=== PATIENT | female | born 1950 ===

== ENCOUNTER 2021-04-09 05:44 | Day surgery (SDC) | payer OTHER ==
[~2021-04-09 05:44] MED LIST: ADULT LOW DOSE81 M1 PO; ADVAIR HFA 230/12 GM IH; B12 ACTIVE1000 MCG PO; CALCIUM500 M2 PO; CARAFATE1 GM PO; CELEXA20 MG PO; CENTRUM SILVER1 EAC2 PO; CLARITIN10 M2 PO; HYDROCHLOROTHIA25 MG PO; LEVOTHYROXINE25 MCG PO; LEVSIN0.125 MG PO; MULTIPLE VITAM1 EAC2 PO; PROAIR HFA8.5 GM IH; QUESTRAN PACKET4 GM PO; VITAMIN C100 MG PO; ZESTRIL5 MG PO
[2021-04-09] MEDS ORDERED: PERCOCET 5-3251 EACH PO (14:20)
== END 2021-04-09 16:30 | disposition home or self-care (01) ==
LOC: CIR.AMB 05:44
PROVIDERS: ATTEND Surgery
DX: R15.9 Full incontinence of feces (principal); Z20.822 Contact with and (suspected) exposure to COVID-19
CPT/HCPCS: 64581; 95972; C1778

== ENCOUNTER 2021-04-23 06:00 | Day surgery (SDC) | payer OTHER ==
[~2021-04-23 06:00] MED LIST changes: +PERCOCET 5-3251 EACH PO
== END 2021-04-23 13:45 | disposition home or self-care (01) ==
LOC: CIR.AMB 06:00
PROVIDERS: ATTEND Surgery
DX: R15.9 Full incontinence of feces (principal); Z20.822 Contact with and (suspected) exposure to COVID-19
CPT/HCPCS: 64590; 95971; L8679

== ENCOUNTER 2025-01-31 08:44 | Day surgery (SDC) | payer OTHER ==
[2025-01-29 12:19] LABS: HEMOGLOBIN 12.8 g/dL (12.0-15.00); MEAN CELL VOLUME 87.3 fL (80.00-100.00); MEAN CORPUSCULAR HEMOGLOBIN 29.4 pg (27.00-32.0); MEAN CORPUSCULAR HGB CONC 33.7 g/dl (32.0-36.0); PLATELET COUNT 149 K/uL (150-450); RED BLOOD COUNT 4.35 M/uL (4.00-6.00); RED CELL DISTRIBUTION WIDTH 14.7 % (11.5-14.5)
[2025-01-29 12:39] LABS: PARTIAL THROMBOPLASTIN TIME 26.4 SECONDS (22.0-34.0); PROTHROMBIN TIME 10.9 SECONDS (9.0-11.5)
[2025-01-29 13:01] VITALS: BP 115/76
[2025-01-29 13:48] LABS: URINE APPEARANCE Clear; URINE BILIRRUBIN Negative (NEGATIVE); URINE BLOOD Trace; URINE COLOR Yellow; URINE GLUCOSE Negative (NEGATIVE); URINE KETONE Negative (NEGATIVE); URINE LEUKOCYTE Trace; URINE NITRATE Positive; URINE PROTEIN Negative (NEGATIVE); URINE UROBILINOGEN 0.2 E.U./dl
[2025-01-29 13:51] LABS: URINE EPITHELIAL CELLS 32.2 uL (0.0-38.8); URINE RBC 5.4 uL (0.0-20.8); URINE WBC 27.2 uL (0.0-23.2)
[2025-01-29 13:53] LABS: ALBUMIN 3.7 gm/dL (3.4-5.0); BILIRUBIN TOTAL 0.89 mg/dL (0.3-1.2); CALCIUM 9.4 mg/dL (8.5-10.1); CREATININE SERUM 0.71 mg/dL (0.55-1.02); GFR 80.25; GLOBULINA 2.9 G/DL (2.4-3.5); PHOSPHOROUS 3.8 mg/dL (2.5-4.9); POTASSIUM 3.73 mEq/L (3.5-5.1); TOTAL PROTEIN 6.6 gm/dL (6.4-8.2)
[2025-01-29 13:55] LABS: URINE BACTERIA > 9821.5 uL (0.0-1933); URINE CAST 0.88 uL (0.0-1.40)
[~2025-01-31] VITALS: Ht 165.1 cm; Wt 69.9 kg
[2025-01-31] MEDS ORDERED: CEFAZOLIN SODIUM 1,000 MG VIAL ONE (10:22)
[2025-01-31] MEDS ORDERED: TRAM1TAB98 PO (13:18)
== END 2025-01-31 14:45 | disposition home or self-care (01) ==
LOC: CIR.AMB 08:44
PROVIDERS: ATTEND Surgery
DX: R15.9 Full incontinence of feces (principal)
CPT/HCPCS: 64590; 95972; C1767